=== PATIENT | male | born 1995 | race Caucasian/White ===

== ENCOUNTER 2018-04-09 18:53 | Emergency (ER) | payer OTHER ==
[2018-04-09] MEDS ORDERED: Ibuprofen TAB* 600 MG PO ONE (19:19)
--- NOTE | 2018-04-09 20:04 | ED ---
Adult Trauma - HPI Summary HPI Summary: A 23 y/o male presents to the ED c/o hurting his pinky on his left hand during wrestling practice around 18:00 04/09/2018. He states that his pinky "bent back" . He rates his pain as 5/10. He denies numbness, paresthesia, Fever, Chills, Erythema (eyes), Sore throat, Chest pain, Shortness of Breath, Cough, Abdominal pain, Vomiting, Nausea, Dysuria, Hematuria, Myalgia, Edema, Rash and Dizziness. He denies taking medication today. - History of Current Complaint Chief Complaint: EDExtremityUpper Stated Complaint: LT PINKY INJURED Time Seen by Provider: 04/09/18 19:15 Hx Obtained From: Patient Mechanism of Injury: Twisted Onset/Duration: Started Hours Ago Onset of Pain: Immediate Onset Severity: Moderate Current Severity: Moderate Pain Intensity: 5 Location: Extremities - left pinky - Allergy/Home Medications Allergies/Adverse Reactions: Allergies Allergy/AdvReac Type Severity Reaction Status Date / Time No Known Allergies Allergy Verified 04/09/18 19:09 PMH/Surg Hx/FS Hx/Imm Hx Sensory History: Denies: Hx Deafness Opthamlomology History: Denies: Hx Legally Blind Infectious Disease History: No Infectious Disease History: Denies: Traveled Outside the [place] in Last 30 Days - Family History Known Family History: Negative: Blood Disorder - Social History Occupation: Disabled Review of Systems Negative: Fever, Chills Negative: Erythema Negative: Sore Throat Negative: Chest Pain Negative: Shortness Of Breath, Cough Negative: Abdominal Pain, Diarrhea, Nausea Negative: dysuria, hematuria Positive: Myalgia - left pinky pain. Negative: Edema Negative: Rash Neurological: Negative - dizziness Negative: Paresthesia, Numbness All Other Systems Reviewed And Are Negative: Yes Physical Exam - Summary Physical Exam Summary: Constitutional: Well-developed, Well-nourished, Alert. (-) Distressed Skin: Warm, Dry HENT: Normocephalic; Atraumatic Eyes: Conjunctiva normal Neck: Musculoskeletal ROM normal neck. (-) JVD, (-) Stridor, (-) Tracheal deviation Cardio: Rhythm regular, rate normal, Heart sounds normal; Intact distal pulses; The pedal pulses are 2+ and symmetric. Radial pulses are 2+ and symmetric. (-) Murmur Pulmonary/Chest wall: Effort normal. (-) Respiratory distress, (-) Wheezes, (-) Rales Abd: Soft, (-) epigastric tenderness, (-) Distension, (-) Guarding, (-) Rebound Musculoskeletal: Tenderness over left fifth MCP joint with reduced active flexion and distension Lymph: (-) Cervical adenopathy Neuro: Alert, Oriented x3 Psych: Mood and affect Normal Triage Information Reviewed: Yes Vital Signs On Initial Exam: Initial Vitals Temp Pulse Resp BP Pulse Ox 98.7 F 65 17 124/79 99 04/09/18 19:07 04/09/18 19:07 04/09/18 19:07 04/09/18 19:07 04/09/18 19:07 Vital Signs Reviewed: Yes Procedures - Splinting Left 5th Digit Hand-Made Type: adhesive tape Splint: juan jose tape Pre-Proc Neuro Vasc Exam: normal Post-Proc Neuro Vasc Exam: normal Diagnostics - Vital Signs Vital Signs Temp Pulse Resp BP Pulse Ox 04/09/18 19:07 98.7 F 65 17 124/79 99 - Laboratory Lab Statement: Any lab studies that have been ordered have been reviewed, and results considered in the medical decision making process. - Radiology Finger x-ray Radiology Interpretation Completed By: ED Physician - Negative for fracture. Pending official radiology report. Re-Evaluation - Re-Evaluation First Eval Re-Evaluation Time: 20:00 Change: Unchanged Comment: splint procedure Adult Trauma Course/Dx - Course Course Of Treatment: A 23 y/o male presents to the ED c/o hurting his pinky on his left hand during wrestling practice around 18:00 04/09/2018. His PE revealed tenderness over the left 5th mcp joint with reduced active flexion and distention. His finger x-ray was negative for fracture. I performed a splint procedure. Dx: finger sprain. I discussed with the pt the remote possibility of a fracture or tendon injury. He will be discharged and will follow up with [facility]. - Diagnoses Provider Diagnoses: Finger sprain Discharge - Sign-Out/Discharge Documenting (check all that apply): Patient Departure - DC - Discharge Plan Condition: Stable Disposition: HOME Patient Education Materials: Finger Sprain (ED) Referrals: [facility] [Outside] (2-3 days) Additional Instructions: RETURN TO THE EMERGENCY DEPARTMENT FOR CHANGING OR WORSENING SYMPTOMS - Attestation Statements Document Initiated by Scribe: Yes Documenting Scribe: Samuel Burks Provider For Whom Scribe is Documenting (Include Credential): Miguel King Scribe Attestation: ISamuel, scribed for Miguel King on 04/09/18 at 2009.
[2018-04-09 20:15] VITALS: BP 119/86
== END 2018-04-09 20:14 | disposition home or self-care (01) ==
LOC: ED 18:53
DX: S63.617A Unspecified sprain of left little finger, initial encounter (principal); X50.9XXA Other and unspecified overexertion or strenuous movements or postures, initial encounter; Y93.72 Activity, wrestling; Y92.9 Unspecified place or not applicable
CPT/HCPCS: 73140; 99281; A9270-GY